=== PATIENT | female | born 1995 | race Caucasian/White ===

== ENCOUNTER → 2017-06-26 | Outpatient (CLI) | payer OTHER ==
[~2017-06-26] VITALS: Ht 162.6 cm; Wt 69.4 kg
[~2017-06-26] MED LIST: DOCUSATE SODIU100 MG PO; FERROCITE324 MG PO; HYDROCODON-ACE1 EAC7 PO; IBUPROFEN800 MG PO; IRON325 M1 PO; PRENATAL TABLE1 EAC3 PO; TUMS500 MG PO; ZOFRAN ODT4 MG PO
[2017-06-26 14:28] VITALS: BP 99/57
== END | disposition home or self-care (01) ==
LOC: IVINF 12:47
DX: O36.0990 Maternal care for other rhesus isoimmunization, unspecified trimester, not applicable or unspecified (principal); Z3A.00 Weeks of gestation of pregnancy not specified
CPT/HCPCS: 96372; J2790

== ENCOUNTER 2017-09-23 06:04 | Outpatient (CLI) | payer OTHER ==
[2017-09-23 06:20] VITALS: BP 118/77
[2017-09-23 07:32] VITALS: BP 109/64
[2017-09-23 08:30] VITALS: BP 106/57
[2017-09-23 09:43] VITALS: BP 103/54
[2017-09-24] MEDS ORDERED: TUMS DUAL ACTI1 EACH PO (01:01)
== END 2017-09-23 10:20 | disposition home or self-care (01) ==
LOC: LDRP-OP → 2WEST 06:05 → LDRP-OP 10-18 13:28
DX: O47.1 False labor at or after 37 completed weeks of gestation (principal); O48.0 Post-term pregnancy; Z3A.40 40 weeks gestation of pregnancy
CPT/HCPCS: 59025; G0378

== ENCOUNTER 2017-09-23 23:42 | Inpatient (IN) | payer OTHER ==
[~2017-09-23] VITALS: Ht 162.6 cm; Wt 77.0 kg
[2017-09-24] VITALS (14 sets, daily range): BP systolic 95–125; BP diastolic 57–77
[2017-09-24 00:33] LABS: BASOPHIL (%) 0.4 % (0-1); EOSINOPHIL (%) 0.5 % (0-5); EOSINOPHIL COUNT 0.1 K/uL (0-0.3); HEMATOCRIT 32.3 % (36.0-46.0); HEMOGLOBIN 10.7 G/DL (11.9-15.5); IMMATURE GRANULOCYTE (%) 0.5 % (0.0-0.7); LYMPHOCYTE (%) 29.8 % (15-42); LYMPHOCYTE COUNT 3.3 K/uL (1.0-2.8); MCHC 33.1 G/DL (30.0-36.0); MCV 81.6 FL (83-99); MONOCYTE (%) 7.4 % (3-12); MONOCYTE COUNT 0.8 K/uL (0-0.8); NEUTROPHIL (%) 61.4 % (45-76); NEUTROPHIL COUNT 6.7 K/uL (1.8-6.4); PLATELET COUNT 215 K/uL (156-360); RBC DIS.WIDTH-CV 14.4 % (11.8-14.6); RBC DIS.WIDTH-SD 41.9 % (39-53); RED BLOOD COUNT 3.96 M/uL (3.80-5.20)
[2017-09-24] MEDS ORDERED: TUMS DUAL ACTI1 EACH PO (01:01)
[2017-09-25 07:10] LABS: BASOPHIL (%) 0.5 % (0-1); EOSINOPHIL (%) 1.1 % (0-5); EOSINOPHIL COUNT 0.1 K/uL (0-0.3); HEMATOCRIT 28.9 % (36.0-46.0); HEMOGLOBIN 8.9 G/DL (11.9-15.5); IMMATURE GRANULOCYTE (%) 0.5 % (0.0-0.7); LYMPHOCYTE COUNT 3.3 K/uL (1.0-2.8); MCH 25.9 PG (29.0-34.0); MCHC 30.8 G/DL (30.0-36.0); MONOCYTE (%) 6.5 % (3-12); MONOCYTE COUNT 0.6 K/uL (0-0.8); NEUTROPHIL (%) 54.4 % (45-76); NEUTROPHIL COUNT 4.8 K/uL (1.8-6.4); PLATELET COUNT 212 K/uL (156-360); RBC DIS.WIDTH-CV 14.7 % (11.8-14.6); RBC DIS.WIDTH-SD 44.8 % (39-53); RED BLOOD COUNT 3.44 M/uL (3.80-5.20); WHITE BLOOD COUNT 8.9 K/uL (4.1-10.2)
[2017-09-25 07:22] VITALS: BP 98/59
[2017-09-25] MEDS ORDERED: FERRETTS325 MG PO (11:43)
[2017-09-25 16:00] VITALS: BP 100/55
== END 2017-09-25 19:40 | disposition home or self-care (01) | DRG 775 ==
LOC: LDRP-OP 23:42 → 2WEST 23:44 → LDRP-OP 10-18 10:30
PROVIDERS: Advanced Practice Midwife
PROC: 00HU33Z Insertion of Infusion Device into Spinal Canal, Percutaneous Approach (ICD-10-PCS; principal; 2017-09-24)
PROC: 10907ZC Drainage of Amniotic Fluid, Therapeutic from Products of Conception, Via Natural or Artificial Opening (ICD-10-PCS; principal; 2017-09-24)
PROC: 10E0XZZ Delivery of Products of Conception, External Approach (ICD-10-PCS; principal; 2017-09-24)
PROC: 3E0R3BZ Introduction of Anesthetic Agent into Spinal Canal, Percutaneous Approach (ICD-10-PCS; principal; 2017-09-24)
DX: O48.0 Post-term pregnancy (principal); O99.02 Anemia complicating childbirth; D62 Acute posthemorrhagic anemia; D50.9 Iron deficiency anemia, unspecified; Z37.0 Single live birth; Z3A.40 40 weeks gestation of pregnancy
CPT/HCPCS: 59025; 83030; 85025; 86850; 86870; 86900; 86901; 86905; 86920; C1755; G0378; J2405; J2790; J3010; J7120